=== PATIENT | male | born 1955 | race Caucasian/White ===

== ENCOUNTER 2017-11-26 07:30 | Emergency (ER) | payer SELFPAY ==
[2017-11-26 08:52] VITALS: BP 135/79
--- NOTE | 2017-11-26 09:11 | UC ---
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 pain over the right SI joint and up the back - History of Current Complaint Chief Complaint: UCBackPain Stated Complaint: WC-BACK PAIN Time Seen by Provider: 11/26/17 08:54 Hx Obtained From: Patient Onset/Duration: Sudden Onset, Lasting Days Timing: Lasting Days Severity Initially: Severe Severity Currently: Severe Pain Intensity: 10 Back Pain: Is Discrete @ - right SI and right back Character: Aching, Spasmodic, Stiffness Aggravating Factor(s): Lifting, Bending, Walking Associated Signs And Symptoms: Positive: Weakness, Pain with Weight Bearing - Allergies/Home Medications Allergies/Adverse Reactions: Allergies Allergy/AdvReac Type Severity Reaction Status Date / Time No Known Allergies Allergy Verified 11/26/17 08:41 PMH/Surg Hx/FS Hx/Imm Hx Previously Healthy: Yes - Surgical History Surgical History: Yes Surgery Procedure, Year, and Place: R FEMUR REPAIR X 3. ANGIOPLASTY - Family History Known Family History: Positive: Cardiac Disease - Social History Alcohol Use: None Substance Use Type: None Smoking Status (MU): Former Smoker Type: Cigarettes When Did the Patient Quit Smoking/Using Tobacco: 30 YEARS AGO Review of Systems Constitutional: Negative Skin: Negative Eyes: Negative ENT: Negative Respiratory: Negative Cardiovascular: Negative Gastrointestinal: Negative Genitourinary: Negative Motor: Negative Neurovascular: Negative Musculoskeletal: Arthralgia, Decreased ROM, Myalgia Neurological: Negative Psychological: Negative Is Patient Immunocompromised?: No All Other Systems Reviewed And Are Negative: Yes Physical Exam Triage Information Reviewed: Yes Appearance: Well-Appearing, Well-Nourished, Pain Distress Vital Signs: Initial Vital Signs Temp 97.6 F 11/26/17 08:42 Pulse 88 11/26/17 08:42 Resp 16 11/26/17 08:42 BP 135/79 11/26/17 08:42 Pulse Ox 97 11/26/17 08:42 Vital Signs Reviewed: Yes Eye Exam: Normal ENT Exam: Normal Dental Exam: Normal Neck exam: Normal Neck: Positive: Supple, Nontender, No Lymphadenopathy Respiratory Exam: Normal Respiratory: Positive: Chest non-tender, Lungs clear, Normal breath sounds Cardiovascular Exam: Normal Cardiovascular: Positive: RRR, No Murmur, Pulses Normal Abdominal Exam: Normal Abdomen Description: Positive: Nontender, No Organomegaly, Soft Bowel Sounds: Positive: Present Musculoskeletal: Positive: No Edema - spasm of paraspinal muscles noted, Strength Limited @, ROM Limited @ - in lumbar flx and ext, twisting also painful Neurological Exam: Normal Psychological Exam: Normal Skin Exam: Normal Diagnostics - Laboratory Diagnostic Studies Completed/Ordered: lumbar sacral xray ordered. Back Pain Course/Dx - Course Course Of Treatment: hx obtained, exam performed ,meds reviewed, xray obtained. toradol given, educated on treatment of low back pain ans strain of SI joint. - Differential Dx/Diagnosis Differential Diagnosis/HQI/PQRI: Arthritis, Herniated Disc, Strain, Sprain Provider Diagnoses: lumbar strain. right si joint sprain Discharge - Discharge Plan Condition: Stable Disposition: HOME Prescriptions: Cyclobenzaprine TAB* [Flexeril 10 MG TAB*] 10 mg PO TID PRN #30 tab PRN Reason: Spasms Meloxicam [Mobic] 15 mg PO DAILY #14 tablet Patient Education Materials: Low Back Strain (ED) Referrals: No Primary Care Phys,NOPCP [Primary Care Provider] - Additional Instructions: 1. take the medication as prescribed. 2. I recommend, low back stretches and the 3 exercises demonstrated in the link to the video I am sending with you, 3. rest and return top activity as tolerated.
[2017-11-26] MEDS ORDERED: Ketorolac INJ* 60 MG/2 ML VIAL IM ONE (09:33)
--- NOTE | 2017-11-26 11:38 | RAD ---
Indication: Neck pain. 3 views of lumbar spine demonstrate vertebral bodies to be normal in height. Bridging syndesmophytes are noted at L1-L2. No fracture is noted. IMPRESSION: Bridging syndesmophytes at L1-L2. No fracture is present.
== END 2017-11-26 10:31 | disposition home or self-care (01) ==
LOC: UCCORT 07:30
DX: S33.6XXA Sprain of sacroiliac joint, initial encounter (principal); S39.012A Strain of muscle, fascia and tendon of lower back, initial encounter; X50.9XXA Other and unspecified overexertion or strenuous movements or postures, initial encounter; X50.0XXA Overexertion from strenuous movement or load, initial encounter; Y93.89 Activity, other specified; Y92.89 Other specified places as the place of occurrence of the external cause; Z87.891 Personal history of nicotine dependence
CPT/HCPCS: 72100; 99212; G0463; J1885

== ENCOUNTER 2018-02-07 09:33 | Observation (INO) | payer OTHER ==
[~2018-02-07 09:33] MED LIST: Buffered Lidocaine 0.9% SYRIN* 5 ML/SYR SYRINGE INTRADERM ONE; Famotidine TAB* 20 MG PO ONE; Metoclopramide TAB* 10 MG PO ONE
[2018-02-07] MEDS ORDERED: Metoclopramide TAB* 10 MG ONE (09:38)
[2018-02-07] MEDS ORDERED: ceFAZolin 2 GM PREMIX (*) 2 GM/50 ML BAG IVPB ONE (09:38)
[2018-02-07] MEDS ORDERED: Famotidine TAB* 20 MG ONE (09:38)
[2018-02-07] MEDS ORDERED: Dexamethasone IV* 4 MG/ML 1 ML (4 MG) ONE (10:48)
[2018-02-07] MEDS ORDERED: Propofol* 10 MG/ML 20 ML BTL IV PUSH ONE ×2 (10:48→13:30)
[2018-02-07] MEDS ORDERED: Midazolam* 1 MG/ML 5 ML VIAL (5 MG) ONE (10:48)
[2018-02-07] MEDS ORDERED: Ondansetron INJ* 2 MG/ML VIAL ONE (10:48)
[2018-02-07] MEDS ORDERED: Lidocaine 2% PF * 5 ML VIAL ONE (10:48)
[2018-02-07] MEDS ORDERED: Phenylephrine INJ* 10 MG/ML 1 ML VIAL (10 MG) ONE (10:48)
[2018-02-07] MEDS ORDERED: fentaNYL* 50 MCG/ML 2 ML VIAL (100 MCG VIAL) ONE ×5 (10:48→17:14)
[2018-02-07] MEDS ORDERED: Cisatracurium* 2 MG/ML MDV 5 ML ONE (12:26)
[2018-02-07] MEDS ORDERED: Lidocain 1% EPI 1:100,000 * 30 ML MDV ONE (12:41)
[2018-02-07] MEDS ORDERED: Bacitracin IV* 50,000 UNITS INJ ONE (12:41)
[2018-02-07] MEDS ORDERED: Thrombin 5,000 UNITS* 1 APPLIC KIT - topical use - TOPICAL ONE (12:41)
[2018-02-07] MEDS ORDERED: Naloxone* 0.4 MG/ML 1 ML VIAL IV PRN (14:02)
[2018-02-07] MEDS ORDERED: Ondansetron INJ* 2 MG/ML VIAL IV PRN (14:02)
[2018-02-07] MEDS ORDERED: Magnesium Hydroxide LIQ* 30 ML UDC PO PRN (14:44)
[2018-02-07] MEDS ORDERED: Ondansetron 40 MG VIAL* 2 MG/ML 20 ML VIAL IV PRN (14:44)
[2018-02-07] MEDS ORDERED: Acetaminophen TAB* 325 MG PO PRN (14:44)
[2018-02-07] MEDS: fentaNYL* 50 MCG/ML 2 ML VIAL (100 MCG VIAL) IV PRN ×4 (14:51→17:18)
[2018-02-07] MEDS ORDERED: HYDROmorphone INJ* 2 MG/ML CARPUJECT SYRINGE ONE (15:16)
[2018-02-07] MEDS: HYDROmorphone INJ* 1 MG/ML CARPUJECT SYRINGE IV PRN ×3 (15:18→15:55)
--- NOTE | 2018-02-07 15:18 | RAD ---
INDICATION: Right lumbar discectomy L4-L5 COMPARISON: Lumbar spine November 26, 2017 TECHNIQUE: A single crosstable lateral image obtained at 1333 hours is submitted FINDINGS: There is a curved hemostat and there are retractors in place projecting over the posterior canal at the L4 vertebral body level.
[2018-02-07] MEDS ORDERED: Midazolam* 1 MG/ML 2 ML VIAL (2 MG) IV ONE (15:22)
[2018-02-07] MEDS ORDERED: Midazolam* 1 MG/ML 2 ML VIAL (2 MG) ONE (15:25)
[2018-02-07] MEDS: HYDROcodone/ACETAMIN 5-325 MG* 1 TAB PO PRN ×2 (16:26→20:43)
[2018-02-07] MEDS ORDERED: HYDROcodone/ACETAMIN 5-325 MG* 1 TAB ONE ×2 (16:26→20:40)
[2018-02-07] MEDS: Morphine VIAL* 4 MG/ML VIAL (1 ml vial) IV PRN (20:44)
[2018-02-08] MEDS: HYDROcodone/ACETAMIN 5-325 MG* 1 TAB PO PRN ×4 (02:14→16:56)
[2018-02-08] MEDS: Morphine VIAL* 4 MG/ML VIAL (1 ml vial) IV PRN (02:18)
[2018-02-08] MEDS ORDERED: Omeprazole CAP* 20 MG PO SCH (09:00)
--- NOTE | 2018-02-08 09:58 | PN ---
Progress Note - Progress Note Date of Service: 02/08/18 SOAP: Subjective: [S/p lumbar discectomy L4-5 right, POD #1. Complains of back pain, worse with movement. Has been up ambulating and sitting up. Required IV Morphine overnight with PO [place]. Denies headache and nausea. Objective: Vital Signs: Temp Pulse Resp BP Pulse Ox 98.4 F 89 20 119/73 96 02/08/18 07:12 02/08/18 07:12 02/08/18 08:09 02/08/18 07:12 02/08/18 07:12 General: Alert and without distress. Neuro: Motor and sensory intact. Incision: Intact and without swelling Assessment: Satisfactory post-op, continues to have severe back pain. Plan: 1. Discontinue IV Morphine. 2. Cyclobenzaprine 10mg PO TID 3. Encourage up out of bed as tolerated. 4. Possible discharge home this afternoon. ]
[2018-02-08] MEDS: Cyclobenzaprine TAB* 10 MG PO PRN ×2 (10:57→15:30)
[2018-02-08 13:12] VITALS: BP 143/78
--- NOTE | 2018-02-13 10:00 | OP ---
DATE OF OPERATION: 02/07/18 - ROOM #331 DATE OF : 55 PRIMARY SURGEON: Morgan Maravilla MD. MANAGER EXPORT: ROBERTO Guzman. ANESTHESIA: General. PRE-OP DIAGNOSIS: Herniated nucleus pulposus, L4-5 on the right. POST-OP DIAGNOSES: Herniated nucleus pulposus, L4-5 on the right. OPERATIVE PROCEDURE: Lumbar diskectomy L4-5 on the right with microdissection. DESCRIPTION OF PROCEDURE: After satisfactory general anesthesia was obtained, the patient's head was placed on the operating table in the prone position with the chest supported on the Vaughn frame and the back slightly flexed. The lumbar region was then clipped, prepped and draped in a sterile manner for a lumbar laminectomy, and a skin incision was outlined from L4 to L5. This incision was infiltrated with 1% Xylocaine with epinephrine after which we turned down in sharply to the level of the lumbar fascia. The fascia was divided along the spinous processes of L4 and L5 and the paraspinal musculature was stripped away on the right side. An intraoperative x-ray was obtained verifying proper interspace localization after which a partial hemilaminectomy was carried out by removing the inferior aspect of the L4 lamina and medial aspect of the facet complex with a combination of Midas Lucio drill and Kerrison rongeurs. This was carried superiorly until the attachment of the ligamentum flavum was taken down. Additional superior and lateral exposure was obtained as preoperative studies were suggested a superior lateral migrated disk fragment. At this point of the procedure, the operating microscope was brought into the field and the remainder of the procedure was done under microscopic visualization. Projecting beneath the L5 nerve root was noted to be a subcapsular herniation of disk material. An opening was made in the posterior longitudinal ligament and multiple fragments from the disk space itself. Projecting out laterally was a foraminal disk herniation, which was removed with Kerrison's and pituitary rongeurs as well. Additional lateral exposure was obtained into the L4 nerve root could be identified and with microdissection , several fragments were removed from this region and the L4 nerve root was noted to be free in its course. After assuring adequate hemostasis, the wound was thoroughly irrigated after which a piece of Gelfoam was placed over the laminectomy defect. The fascia was then reapproximated with 0 Vicryl suture. The subcutaneous tissue was closed with 3-0 Vicryl suture and the skin closed with skin clips. The estimated blood loss was less than 50 cc and the final sponge, padding, and needle counts were correct. The patient was taken to the recovery room, extubated, and in stable condition. [id number]/[facility] #: [id number] MTDD
--- NOTE | 2018-02-25 08:40 | DS ---
DISCHARGE SUMMARY: DATE OF ADMISSION: 02/07/18 DATE OF DISCHARGE: 02/08/18 ATTENDING SURGEON: Morgan Maravilla MD * (DICTATED BY ROBERTO RABAGO) DISCHARGE DIAGNOSIS: Herniated nucleus pulposus L4-5 on the right. PROCEDURE: Lumbar diskectomy L4-5 on the right. HOSPITAL COURSE: This 62-year-old male was seen in office with right-sided lumbar radiculopathy. Imaging was obtained showing a herniated disk at L4-5 on the right consistent with the patient's symptoms. He had failed to improve with conservative treatment and therefore, elected for surgical intervention. Cardiac clearance was obtained preoperatively. On the day of admission, he underwent lumbar diskectomy L4-5 on the right. Postoperatively he was feeling well and pain was well controlled with oral and IV pain medications which was then transitioned to PO only on POD #1. The right lower extremity symptoms were improved and he is able to ambulate independently. He is eating, drinking and voiding without difficulty. On the first postoperative day, he was discharged home to the care of his . DISCHARGE INSTRUCTIONS: Wound care and activity level were discussed with the patient and provided. DISCHARGE MEDICATIONS: 1. Cyclobenzaprine 10 mg 1 tablet by mouth up to 3 times a day as needed for muscle spasms. 2. [place] 5/325 mg 2 tabs by mouth every 4 hours as needed for pain. FOLLOWUP: The patient will be seen in the office in approximately 10 days for followup and staple removal. ROBERTO RABAGO [id number]/[facility] #: [id number] [facility]
== END 2018-02-08 17:10 | disposition home or self-care (01) ==
LOC: OR 09:33 → SSU 09:54 → OBSVTOIN 02-08 09:54 → INTOOBSV 02-08 09:54
PROVIDERS: ADMIT Neurological Surgery; ATTEND Neurological Surgery
DX: M51.26 Other intervertebral disc displacement, lumbar region (principal); M54.9 Dorsalgia, unspecified; Z87.891 Personal history of nicotine dependence
CPT/HCPCS: 72100; A9270-GY; G0378; J0690; J1100; J1170; J2250; J2270; J2405; J2704; J3010

== ENCOUNTER 2018-11-20 17:19 | Emergency (ER) | payer BC, OTHER ==
--- OUTSIDE RECORDS SUMMARY | 2018-11-20 17:32 | XMS REPORT | Continuity of Care Document ---
:1955 External Reference #:[id number] Author Name Vinayak Oseguera MD Address [address] [place] [address] Care Team Providers Name Role Phone Vinayak Oseguera MD Care Team Information [employer] Unavailable Vinayak Oseguera MD Primary Care Physician Unavailable Payers Type Date Identification Numbers Payment Provider Subscriber Policy Number: [id number] [employer] Godwin Conrad PayID: [id number] [address] [address] [place] [address] Policy Number: [id number] [employer] Godwin Conrad PayID: [id number] [address] [place] [address] Advance Directives Description No Information Available Problems Date Description Provider Status Onset: 11/12/2011 Arthralgia of the pelvic region and Morgan Moser MD, Active thigh FACS Onset: 11/12/2011 Other Aftercare Involving Internal Morgan Moser MD, Active Fixation Device FACS Onset: 12/03/2011 Other Aftercare Involving Internal Morgan Moser MD, Active Fixation Device FACS Onset: 01/14/2012 Lumbosacral spondylosis without Morgan Moser MD, Active myelopathy FACS Onset: 01/14/2012 Displacement of lumbar Morgan Moser MD, Active intervertebral disc without FACS myelopathy Onset: 05/15/2012 Nonunion of fracture Morgan Moser MD, Active FACS Onset: 04/24/2015 Chest pain Dieter Underwood Active M.D., FACC Onset: 04/24/2015 Tachycardia Dieter Underwood Active M.D., FACC Onset: 04/24/2015 Electrocardiogram abnormal Dieter Underwood Active M.D., [facility] Family History Date Family Member(s) Problem(s) Comments : (age 60 Years) Father due to Liver Cancer : (age 70 Years) Mother due to Stomach Cancer Social History Type Date Description Comments Sex Unknown Lives With Diet Patient follows no dietary restrictions 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 Tobacco Use Start: Unknown End: Former Cigarette Smoker Quit 25 years ago Unknown ETOH Use Denies alcohol use Tobacco Use Start: Unknown End: Patient is a former smoker Unknown Smoking Status Reviewed: 10/26/18 Patient is a former smoker Allergies, Adverse Reactions, Alerts Description No Known Drug Allergies Medications Medication Date Status Form Strength Qnty SIG Indications Ordering Provider Ventolin HFA 10/26/ Active Aerosol 108(90Base 8gm 2 puffs J45.909 Ana Rosa, 2019 ) mcg/Act q4-6 hours MD Vinayak as needed No Active 10/26/ Hx Unknown Medications 2018 - 2018 No Active 01/24/ Hx Unknown Medications 2017 - 2017 No Active 05/08/ Hx Unknown Medications 2014 - 2014 Flovent HFA 04/18/ Hx Aerosol 44mcg/Act 1units 2 puff Jeremías, 2014 twice a day MD Chey Codeine 06/12/ Hx Tablets 30mg 30tabs 1 tab every [place], 2011 6 hours Morgan Berg MD, FACS Oxycodone/Yosef 12/05/ Hx Tablets 5-325mg 24tabs 1 po q 6 h martha Lainez 2012 prn Joel Brady MD Oxycodone HCL / Hx Tablets 5-325 1 po q 6 h Ehsan, 0000 - Morgan Berg 12/05/ MD FACS 2012 Stool / Hx Capsules 1 po qd Unknown Softener 0000 Xarelto / Hx Tablets Unknown 0000 Janett-Sequels / Hx Tablets ER 50mg 60tabs 1 po bid Unknown 0000 Albuterol / Hx Nebulizer (2.5mg/3ML nebulized Unknown Sulfate 0000 ) 0.083% every 6 hours as needed Omeprazole / Hx Capsules DR 20mg 1 by mouth Unknown 0000 - every day 2018 Immunizations Description No Information Available Vital Signs Date Vital Result Comment 10/26/2018 4:19pm BP Systolic 142 mmHg BP Diastolic 86 mmHg Body Temperature 97.6 F Heart Rate 88 /min Respiratory Rate 18 /min Height 71 inches 5'11" Weight 230.00 lb BMI (Body Mass Index) 32.1 kg/m2 BSA (Body Surface Area) 2.24 m2 [place] body weight in kilograms 78 kg O2 % BldC Oximetry 97 % Ra 01/24/2018 10:07am BP Systolic Sitting Left Arm 124 mmHg BP Diastolic Sitting Left Arm 70 mmHg Heart Rate 82 /min Respiratory Rate 18 /min Height 71 inches 5'11" Weight 229.00 lb BMI (Body Mass Index) 31.9 kg/m2 BSA (Body Surface Area) 2.23 m2 [place] body weight in kilograms 78 kg 05/08/2015 3:41pm BP Systolic 153 mmHg BP Diastolic 98 mmHg Height 71 inches 5'11" Weight 233.00 lb BMI (Body Mass Index) 32.5 kg/m2 BSA (Body Surface Area) 2.25 m2 04/24/2015 2:58pm BP Systolic Sitting Right Arm 132 mmHg BP Diastolic Sitting Right Arm 88 mmHg Heart Rate 103 /min Respiratory Rate 16 /min Height 70 inches 5'10" Weight 227.00 lb BMI (Body Mass Index) 32.6 kg/m2 BSA (Body Surface Area) 2.20 m2 04/18/2015 3:10pm BP Systolic 140 mmHg BP Diastolic 70 mmHg Heart Rate 84 /min Respiratory Rate 18 /min Height 70 inches Weight 230.00 lb BMI (Body Mass Index) 33.0 kg/m2 05/15/2012 9:19am BP Systolic Sitting Right Arm 142 mmHg BP Diastolic Sitting Right Arm 100 mmHg BP Systolic Sitting Left Arm 150 mmHg BP Diastolic Sitting Left Arm 100 mmHg Height 71.5 inches 5'11.50" Weight 217.00 lb BMI (Body Mass Index) 29.8 kg/m2 11/12/2011 9:33am Height 72 inches 6'0" Results Test Date Facility Test Result H/L Range Note Laboratory test 06/06/2015 [facility] Lipoma lipoma 1 finding [address] [place] [address] [phone] Laboratory test 04/26/2015 N2N/CCD Import Alanine 38 12-78 finding Aminotransferase (Alt/SGPT) Albumin 4.0 3.4-5.0 Albumin/Globulin Ratio 1.1 Alkaline Phosphatase 93 45-117 Anion Gap 8 8-16 Aspartate Amino Transf (Ast/Sgot) 18 15-37 BUN/Creatinine Ratio 22.2 Basophils # (Auto) 0.05 Low 0.1-0.2 Basophils (%) (Auto) 0.4 0.1-1.0 Blood Urea Nitrogen 20 High 7-18 Calcium Level 8.7 8.5-10.1 Carbon Dioxide Level 25 21-32 Chloride Level 105 98-107 Creatinine 0.9 0.6-1.3 D-Dimer, Quantitative 0.22 Eosinophils # (Auto) 0.27 0.0-0.5 Eosinophils (%) (Auto) 2.3 0.0-5.0 Globulin 3.5 1.9-4.3 Glucose Screen 91 74-106 Hematocrit 40.8 38.0-48.0 Hemoglobin 14.7 12.8-17.0 Lymphocytes # (Auto) 3.61 1.8-7.0 Lymphocytes (%) (Auto) 30.5 17.0-56.0 Mean Corpuscular Hemoglobin 31.2 27.0-33.0 Mean Corpuscular Hemoglobin Concent 36.0 31.7-36.0 Mean Corpuscular Volume 86.6 80.0-96.0 Mean Platelet Volume 11.1 High 6.6-10.6 Monocytes # (Auto) 1.20 High 0.0-0.8 Monocytes (%) (Auto) 10.1 High 0.0-10.0 Neutrophils # (Auto) 6.71 1.8-7.0 Neutrophils (%) (Auto) 56.7 33.0-73.0 Platelet Count 295 150-400 Potassium Level 3.9 3.5-5.1 RDW Coefficient of Variation 12.5 11.6-15.8 Red Blood Count 4.71 4.20-5.80 Red Cell Distribution Width 38.3 36-51 Sodium Level 138 136-145 Total Bilirubin 0.6 0.2-1.0 Total Creatine Kinase 91 39-308 Total Protein 7.5 6.4-8.2 White Blood Count 11.8 High 3.4-10.5 1 OPERATION/PROCEDURE Excision of lipoma of neck DIAGNOSIS: "SUBCUTANEOUS TISSUE, POSTERIOR NECK, EXCISION": - LIPOMA. EP/clf [id number] GROSS Received in formalin in a properly labeled container with the patient's name and accession number designated, "LIPOMA, POSTERIOR NECK". The specimen consists of multiple pieces of mosley-yellow fibroadipose tissue with an aggregate measurement of 5.4 x 5.0 x 4.0 cm. Hourly Shift Manager sections are submitted within a single cassette. /clf PRE OPERATIVE DIAGNOSIS Neck lipoma REVIEW CODE CODE: I Signed Electronically signed Michelle RAMIRES MD [id number] Procedures Date Code Description Status 01/24/2018 19756 EKG-Tracing And Report Completed 06/06/2015 83573 Exc Benign Lesion Over 4.0 CM Completed 05/02/2015 81710 Stress Test Interpre And Report Only Completed 05/02/2015 80950 Stress Test Physician Super Only Completed 05/02/2015 87105 Stress Test Physician Super Only Completed 05/02/2015 39262 Myocardial Imaging Tomographic Multiple Study AT Rest Or Completed Stress 04/27/2015 59780 EKG Interpretation And Report Only Completed 04/27/2015 21297 EKG Interpretation And Report Only Completed 04/24/2015 07354 EKG-Tracing And Report Completed 05/15/2012 92343 Radiology, Femur 2 Views Completed 03/09/2012 82217 Radiology, Femur 2 Views Completed 01/14/2012 35388 Radiology, Femur 2 Views Completed 01/14/2012 22899 Radiology, L-S Spine Complete Completed 12/10/2011 99043 Radiology, Hip Complete 2 Views Completed 12/03/2011 30850 Radiology, Femur 2 Views Completed 11/12/2011 04599 Radiology, Femur 2 Views Completed Encounters Type Date Location Provider Dx Diagnosis Office Visit 01/24/2018 Cardiology Office Escobar Cheek Z01.810 Encounter for 10:00a ROBERTO Helm preprocedural cardiovascular examination R94.31 Abnormal electrocardiogram [ECG] [EKG] R00.0 Tachycardia, unspecified Office Visit 05/08/2015 Surgical Office Mane, 214.1 Lipoma Other Skin 3:15p Christopher H., And Subcutaneous Joanna.Woodrow Tissue Office Visit 04/24/2015 Cardiology Dieter Underwood 786.50 Pain Chest Unspec 2:40p Office Queenie Martinez, FACC 785.0 Tachycardia Unspec 794.31 Electrocardiogram (ECG) (EKG) Abnormal Office Visit 05/15/2012 9:15a Orthopaedic Office Morgan Moser V54.09 Dee Dee Berg MD, FACS Involving Internal Fixation Device 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 Office Visit 03/09/2012 8:45a Orthopaedic Office Morgan Moser V54.09 Dee Dee Berg MD, FACS Involving Internal Fixation Device Office Visit 01/14/2012 9:30a Orthopaedic Office Morgan Moser V54.09 Dee Dee Berg MD, FACS Involving Internal Fixation Device 719.45 Pain Joint Pelvic Region & Thigh 721.3 Spondylosis Lumbar W/O Myelopathy 722.10 Intervertebral Disc Displacement Lumbar W/O Myelopathy Office Visit 12/10/2011 11:00a Orthopaedic Office Morgan Moser 719.45 Abisai Berg MD, FACS Pelvic Region & Thigh Office Visit 12/03/2011 10:45a Orthopaedic Office Morgan Moser v54.09 Dee Dee Berg MD, FACS Involving Internal Fixation Device Office Visit 11/12/2011 9:00a Orthopaedic Office Morgan Moser 719.45 Abisai Berg MD, FACS Pelvic Region & Thigh V54.09 Other Aftercare Involving Internal Fixation Device Plan of Treatment Future Appointment(s):11/27/2018 4:00 pm - [facility] - Vinayak Oseguera MDZ00.01 Encounter for general adult medical examination with wqvaohmV21.909 Unspecified asthma, uncomplicatedNew Medication: Ventolin HFA 108(90 Base) mcg/Act - 2 puffs q4-6 hours as neededNew Orders:PFT With Bronchodilator, Ordered: 10/26/18Z13.6 Encounter for screening for cardiovascular disordersNew Labs:CBC W/Automated Diff, Ordered: Comprehensive Metabolic Panel, Ordered: 10/26/18LDL Cholesterol Profile, Ordered: 10/26/18Glycohemoglobin A1c, Ordered: 10/26/18T7/TSH, Ordered: 10/26/18
[2018-11-20 17:42] VITALS: BP 152/98
--- NOTE | 2018-11-20 18:21 | UC ---
Cardiac HPI - HPI Summary HPI Summary: 63-year-old male comes to clinic with a chief complaint of left-sided splinting chest pain. Patient reports the pain started 3 days ago when he was working on his work truck. He was reaching and pulling for a strap. Pain was minimal at the time. Pain increased during that evening and was worse 2 days ago any worse yesterday. It slightly less pain today. Pain is worse when he takes deep breath twists and turns his thorax. Does not feel short of breath the fevers or chills. Pain originates just underneath the left scapula and wraps around the front. Is not nauseous or sweaty. When asked if he feels like this might be cardiac he denies any concerns of heart attack. 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 No prior history of DVTs or pulmonary emboli. Denies any calf swelling or pain. - History of Current Complaint Chief Complaint: UCRespiratory Stated Complaint: COUGH,SOB,PAIN IN LEFT SIDE Time Seen by Provider: 11/20/18 17:47 Pain Intensity: 7 - Allergy/Home Medications Allergies/Adverse Reactions: Allergies Allergy/AdvReac Type Severity Reaction Status Date / Time No Known Allergies Allergy Verified 02/07/18 09:52 Home Medications: Home Medications Albuterol HFA INHALER* [Ventolin HFA Inhaler*] 1 puff PO DAILY 11/20/18 [ History Confirmed 11/20/18] PMH/Surg Hx/FS Hx/Imm Hx Previously Healthy: Yes Respiratory History: Asthma - Surgical History Surgical History: Yes Surgery Procedure, Year, and Place: RIGHT FEMUR REPAIR X 3- HARDWARE IN PLACE. CARDIAC ABLATION. RIGHT HIP. UMBILICAL HERNIA - Family History Known Family History: Positive: Cardiac Disease - Social History Alcohol Use: None Substance Use Type: None Smoking Status (MU): Former Smoker Type: Cigarettes When Did the Patient Quit Smoking/Using Tobacco: 30 YEARS AGO Review of Systems All Other Systems Reviewed And Are Negative: Yes Constitutional: Positive: Negative Skin: Positive: Negative Eyes: Positive: Negative ENT: Positive: Negative Respiratory: Positive: Negative Cardiovascular: Positive: Chest Pain Gastrointestinal: Positive: Negative Motor: Positive: Negative Neurovascular: Positive: Negative Musculoskeletal: Positive: Negative. Negative: Calf Tenderness Neurological: Positive: Negative Psychological: Positive: Negative Is Patient Immunocompromised?: No Physical Exam Triage Information Reviewed: Yes Appearance: Well-Appearing, Well-Nourished, Pain Distress - mild with rom left chest Vital Signs: Initial Vital Signs Temp 97.8 F 11/20/18 17:34 Pulse 102 11/20/18 17:34 Resp 20 11/20/18 17:34 BP 152/98 11/20/18 17:34 Pulse Ox 97 11/20/18 17:34 Vital Signs Reviewed: Yes Eye Exam: Normal Eyes: Positive: Conjunctiva Clear Neck exam: Normal Neck: Positive: Supple, Nontender Respiratory: Positive: Lungs clear, Normal breath sounds, No respiratory distress, Other: - Tender to palpation along the medial and inferior aspect of the left scapula and the left ribs underneath the arm and to the anterior mid chest aspect. Lungs clear to auscultation. Patient reports decreased pain when he started taking a deep breath. Cardiovascular: Positive: RRR Musculoskeletal Exam: Normal Musculoskeletal: Positive: Strength Intact, ROM Intact, No Edema, Other: - no calf tenderness Neurological Exam: Normal Neurological: Positive: Alert, Muscle Tone Normal Psychological Exam: Normal Psychological: Positive: Age Appropriate Behavior Skin Exam: Normal - Assessment/Plan Course Of Treatment: I discussed the x-rays with the patient. I do not see any acute fractures there are some old healed rib fractures. No acute disease seen on chest x-ray by me radiologist reading is pending. Patient reports taking quite a bit of acetaminophen therefore when I do his prescription I'm going to do a prescription for ibuprofen and Flexeril and then oxycodone as needed the oxycodone will be without acetaminophen. Also sent a prescription for an incentive spirometer to help avoid respiratory infection. Patient does not have any calf pain or tenderness on examination and no prior history of DVT or pulmonary embolus. We discussed the signs and symptoms of pulmonary embolus and the patient know she get reevaluated if he does not improve or worsens. Plan as follows primary care doctor reevaluate sooner if worse. We discussed that he had any concerns this might be cardiac or he's having more shortness breath also discussed pulmonary embolism that he said emergency department. - Clinical Impression Provider Diagnosis: Chest pain, Chest wall pain Discharge - Sign-Out/Discharge Documenting (check all that apply): Patient Departure All imaging exams completed and their final reports reviewed: No - Discharge Plan Condition: Stable Disposition: HOME Prescriptions: Cyclobenzaprine TAB* [Flexeril 10 MG TAB*] 10 mg PO TID PRN #15 tab PRN Reason: Pain Ibuprofen TAB* [Motrin TAB* 600 MG] 600 mg PO Q6H PRN #30 tab PRN Reason: Pain oxyCODONE TAB* [Roxycodone TAB 5 mg*] 5 mg PO Q4H PRN #30 tab MDD 6 PRN Reason: Pain Patient Education Materials: Chest Pain (ED), Chest Wall Pain (ED) Referrals: Darlin Macias MD [Primary Care Provider] - Additional Instructions: FOLLOW UP WITH YOUR DOCTOR IF NOT COMPLETELY IMPROVED. USE THE INCENTIVE SPIROMETER EVERY 4 HOURS WHILE AWAKE TO HELP AVOID RESPIRATORY INFECTION. GO TO THE EMERGENCY DEPARTMENT FOR ANY WORSENING OF YOUR CONDITION; CHEST PAIN, SHORTNESS OF BREATH, FEVER, YOU FEEL ILL OR QUESTIONS OR CONCERNS. - Billing Disposition and Condition Condition: STABLE Disposition: Home
--- NOTE | 2018-11-21 07:36 | UC ---
- Progress Note Progress Note: chest xray : IMPRESSION: MILD BLUNTING OF THE LEFT COSTOPHRENIC ANGLE SUGGESTIVE OF PLEURAL THICKENING LESS LIKELY A TRACE PLEURAL EFFUSION. R2 Course/Dx - Diagnoses Provider Diagnoses: Chest pain, Chest wall pain Discharge - Sign-Out/Discharge Documenting (check all that apply): Patient Departure All imaging exams completed and their final reports reviewed: Yes - Discharge Plan Condition: Stable Disposition: HOME Prescriptions: Cyclobenzaprine TAB* [Flexeril 10 MG TAB*] 10 mg PO TID PRN #15 tab PRN Reason: Pain Ibuprofen TAB* [Motrin TAB* 600 MG] 600 mg PO Q6H PRN #30 tab PRN Reason: Pain oxyCODONE TAB* [Roxycodone TAB 5 mg*] 5 mg PO Q4H PRN #30 tab MDD 6 PRN Reason: Pain Patient Education Materials: Chest Pain (ED), Chest Wall Pain (ED) Referrals: Darlin Macias MD [Primary Care Provider] - Additional Instructions: FOLLOW UP WITH YOUR DOCTOR IF NOT COMPLETELY IMPROVED. USE THE INCENTIVE SPIROMETER EVERY 4 HOURS WHILE AWAKE TO HELP AVOID RESPIRATORY INFECTION. GO TO THE EMERGENCY DEPARTMENT FOR ANY WORSENING OF YOUR CONDITION; CHEST PAIN, SHORTNESS OF BREATH, FEVER, YOU FEEL ILL OR QUESTIONS OR CONCERNS. - Billing Disposition and Condition Condition: STABLE Disposition: Home
== END 2018-11-20 19:01 | disposition home or self-care (01) ==
LOC: UCCORT 17:19
DX: R07.89 Other chest pain (principal); J45.909 Unspecified asthma, uncomplicated; Z87.891 Personal history of nicotine dependence; Z79.51 Long term (current) use of inhaled steroids
CPT/HCPCS: 71046; 99212; G0463